=== PATIENT | male | born 1950 | race Two or more races ===

== ENCOUNTER → 2022-03-07 | Outpatient (CLI) | payer MEDICARE, MEDICAID ==
[~2022-03-07] MED LIST: NAPR250T74; TRAM50TA2
[2022-03-07 10:37] LABS: Basophils # (auto) 0.1 10 ^3/uL (0-0.2); Eosinophils # (auto) 0.2 10 ^3/uL (0-0.8); Eosinophils % (auto) 3.4 % (0.0-7.0); Hematocrit 41.3 % (41.0-53.0); Hemoglobin 13.4 g/dL (13.5-17.5); Lymphocytes # (auto) 2.6 10 ^3/uL (0.4-5.4); Lymphocytes % (auto) 40.2 % (10.0-50.0); Mean Corpuscular Hemoglobin 28.3 pg (28.0-32.0); Mean Corpuscular Hgb Conc. 32.4 g/dL (32.0-36.0); Mean Corpuscular Volume 87.4 fL (80.0-100.0); Monocytes # (auto) 0.5 10 ^3/uL (0-1.3); Monocytes % (auto) 7.3 % (0.0-12.0); Neutrophils # (auto) 3.1 10 ^3/uL (1.6-8.6); Neutrophils % (auto) 48.1 % (37.0-80.0); Red Blood Cells 4.72 10^6/uL (4.5-5.90); Red Cell Distribution Width 14.3 % (11.8-14.3); White Blood Cell 6.5 10^3/uL (4.4-10.8)
[2022-03-07 11:34] LABS: Albumin 3.8 g/dL (3.4-5.0); Calcium 8.8 mg/dL (8.5-10.1); Potassium 4.4 mmol/L (3.5-5.1)
[2022-03-07 11:39] LABS: BUN/Creatinine Ratio 13.7; Bilirubin, Total 0.3 mg/dL (0.2-1.0); Total Protein 7.5 g/dL (6.4-8.2)
== END | disposition home or self-care (01) ==
LOC: LAB 10:18
PROVIDERS: ATTEND Internal Medicine
DX: E78.5 Hyperlipidemia, unspecified (principal); I10 Essential (primary) hypertension; R73.03 Prediabetes; N40.0 Benign prostatic hyperplasia without lower urinary tract symptoms
CPT/HCPCS: 36415; 80053; 80061; 83036; 84153; 84443; 85025

== ENCOUNTER 2024-09-16 14:49 | Emergency (ER) | payer MEDICARE, MEDICAID ==
[~2024-09-16] VITALS: Ht 160 cm; Wt 75.6 kg
--- NOTE | 2024-09-16 15:20 | ED.PDOC ---
History of Present Illness HPI Comments 74-year-old male with a history of BPH and sciatica nerve injury with numbness and associated weakness to with the left leg presents with 3 days of a 7/10 left calf pain and bruising and tenderness to his left medial malleolus. Patient thinks he may have rolled his ankle when walking over a curb. He denies any fever chills nausea vomiting diarrhea. Patient is a smoker. Chief Complaint: Lower Extremity Time Seen by MD: 15:11 Primary Care Provider: DR GARCIA Allergies: Coded Allergies: NO KNOWN ALLERGIES (Unverified , 01/24/11) Home Meds Reported Medications Tramadol Hcl (Tramadol Hcl) 50 Mg Tab 01/24/11 Naproxen (Naprosyn) 250 Mg Tab 01/24/11 Past Medical History PAST MEDICAL HISTORY: Arthritis, High Lipids, HTN Surgical History: Denies all surgeries Family History Family History: Unobtainable Social History Smoker: Cigarettes Alcohol: Occasionally Drugs: Denies Drug Use Lives In: Home All Other Systems: Reviewed and Negative Physical Exam General Appearance: Normal HEENT: Pharyngeal Erythema Neck: Non-Tender, Normal Respiratory: No Respiratory Distress Cardiovascular: No Edema Breast Exam: Deferred Gastrointestinal: No Organomegaly, Non Tender, Soft Genitalia: Deferred Pelvic: Deferred Rectal: Deferred Extremities: Other (left leg appears thinner than right, left calf tender to plapitations) Neurologic: Other (decreased sensation to left leg) Cerebellar Function: NOT DONE Reflexes: NOT DONE Skin: Dry, Normal Color Lymphatic: NOT DONE Was a procedure done? Was a procedure done?: No Differential Dx Considerations may include: DVT, muscle strain, cellulitis, Sánchez cyst X-Ray, Labs, Meds, VS Vital Signs Date Time Temp Pulse Resp B/P (MAP) Pulse Ox O2 Delivery O2 Flow Rate FiO2 09/16/24 17:12 97.9 09/16/24 16:41 90 18 98 Room Air 09/16/24 16:41 99.2 90 18 140/80 (100) 98 99.2 09/16/24 16:12 97.8 09/16/24 15:58 97.8 98 18 146/83 (104) 97 Lab Test 09/16/24 16:08 Range/Units White Blood Count 8.8 4.4-10.8 10^3/uL Red Blood Count 4.56 4.5-5.90 10^6/uL Hemoglobin 14.2 13.5-17.5 g/dL Hematocrit 41.7 41.0-53.0 % Mean Corpuscular Volume 91.4 80.0-100.0 fL Mean Corpuscular Hemoglobin 31.1 28.0-32.0 pg Mean Corpuscular Hemoglobin Concent 34.0 32.0-36.0 g/dL Red Cell Distribution Width 13.7 11.8-14.3 % Platelet Count 311 140-450 10^3/uL Mean Platelet Volume 8.5 6.9-10.8 fL Neutrophils (%) (Auto) 71.9 37.0-80.0 % Lymphocytes (%) (Auto) 21.6 10.0-50.0 % Monocytes (%) (Auto) 5.1 0.0-12.0 % Eosinophils (%) (Auto) 0.8 0.0-7.0 % Basophils (%) (Auto) 0.6 0.0-2.0 % Neutrophils # (Auto) 6.3 1.6-8.6 10 ^3/uL Lymphocytes # (Auto) 1.9 0.4-5.4 10 ^3/uL Monocytes # (Auto) 0.4 0-1.3 10 ^3/uL Eosinophils # (Auto) 0.1 0-0.8 10 ^3/uL Basophils # (Auto) 0.1 0-0.2 10 ^3/uL Nucleated Red Blood Cells 0.1 % D-Dimer, Quantitative 1.98 H 0.0-0.49 mg/L FEU Sodium Level 140 136-145 mmol/L Potassium Level 3.8 3.5-5.1 mmol/L Chloride Level 105 98-107 mmol/L Carbon Dioxide Level 26 20-31 mmol/L Anion Gap 9 5-15 Blood Urea Nitrogen 17 9-23 mg/dL Creatinine 1.04 0.700-1.30 mg/dL Glomerular Filtration Rate Calc 76 >90 mL/min BUN/Creatinine Ratio 16.3 10.0-20.0 Serum Glucose 102 74-106 mg/dL Calcium Level 9.5 8.7-10.4 mg/dL Current Medications Medications (Trade) Dose Ordered Sig/Katie Route Start Time Stop Time Status Last Admin Acetaminophen (Tylenol Tablet) 650 mg ONCE ONCE PO 09/16/24 15:15 09/16/24 15:16 DC 09/16/24 16:12 Time of 1ST Reevaluation: 15:19 Reevaluation 1ST: Unchanged Patient Education/Counseling: Diagnosis, Treatment Family Education/Counseling: No Family Present Departure 1 Departure Time of Disposition: 17:34 (Patient's workup is benign except for an elevated D-dimer. Counseled patient the need for follow up for repeat ultrasound. Patient will follow up with Orthopedics later this week. Discharge patient home with outpatient follow up) Impression: Primary Impression: Pain of left calf Additional Impression: Left ankle sprain Qualified Codes: S93.402A - Sprain of unspecified ligament of left ankle, initial encounter Disposition: HOME / SELF CARE / HOMELESS Condition: Stable Referrals: CRUT LITTLE MD Additional Instructions: Your workup today was benign other than an elevated D-dimer. You should have a repeat ultrasound performed within one week to ensure there is no blood clot. You likely sprained your ankle. Fortunately it is not broken. For pain you can take the followinam: Ibuprofen 400mg with food Noon: Acetaminophen 1000mg 4pm: Ibuprofen 400mg with food 8pm: Acetaminophen 1000mg You can rex wrap your ankle for comfort. You can use crutches as needed. You were referred to orthopedic surgery. Please call for an appointment next week to ensure you are healing well. If your symptoms worsen or you have any other concerns then please return to the ER. Discharged With: Self Critical Care Note Critical Care Time?: No Stability Stability form required: NICKY Abdi MD Sep 16, 2024 15:20
--- NOTE | 2024-09-16 15:51 | DVH ---
Left lower extremity venous duplex Clinical History: calf pain and swelling Comparison: None Technique: Duplex Doppler evaluation of the deep venous system of the left lower extremity from the common femor al vein to the popliteal vein including color Doppler and spectral/pulsed waveform analysis was perfo rmed. Findings: The common femoral vein demonstrates appropriate compressibility and waveform variability. There is compressibility/patency of the great saphenous vein at the proximal thigh. The femoral vein demonstrates appropriate compressibility and waveform variability. The deep femoral vein demonstrates appropriate compressibility and waveform variability. The popliteal vein demonstrates appropriate compressibility and waveform variability. There is normal compressibility at the tibioperoneal trunk. Impression: No left femoropopliteal venous thrombosis.
--- NOTE | 2024-09-16 16:07 | DVH ---
CLINICAL INDICATION: fall with bruising and tenderness TECHNIQUE: XY L ANKLE 3 VIEW Comparison: None FINDINGS/IMPRESSION: : There is no evidence of acute fracture or dislocation. [id number] medial soft-tissue swelling. Degenerative spurring of the calcaneus. Moderate joint effusion.
[2024-09-16] MEDS: ACETAMINOPHEN 325 MG TAB PO ONE (16:12)
[2024-09-16 16:28] LABS: Basophils # (auto) 0.1 10 ^3/uL (0-0.2); Basophils % (auto) 0.6 % (0.0-2.0); Eosinophils # (auto) 0.1 10 ^3/uL (0-0.8); Eosinophils % (auto) 0.8 % (0.0-7.0); Hematocrit 41.7 % (41.0-53.0); Hemoglobin 14.2 g/dL (13.5-17.5); Lymphocytes # (auto) 1.9 10 ^3/uL (0.4-5.4); Lymphocytes % (auto) 21.6 % (10.0-50.0); Mean Corpuscular Hemoglobin 31.1 pg (28.0-32.0); Mean Corpuscular Volume 91.4 fL (80.0-100.0); Monocytes # (auto) 0.4 10 ^3/uL (0-1.3); Monocytes % (auto) 5.1 % (0.0-12.0); Neutrophils # (auto) 6.3 10 ^3/uL (1.6-8.6); Neutrophils % (auto) 71.9 % (37.0-80.0); Nucleated Red Blood Cells % 0.1 %; Platelet Count (auto) 311 10^3/uL (140-450); Red Blood Cells 4.56 10^6/uL (4.5-5.90); Red Cell Distribution Width 13.7 % (11.8-14.3); White Blood Cell 8.8 10^3/uL (4.4-10.8)
[2024-09-16 16:41] VITALS: BP 140/80; PULSE 90; RESP 18; O2SAT 98
[2024-09-16 16:43] LABS: Chloride 105 mmol/L (98-107); Potassium 3.8 mmol/L (3.5-5.1); Sodium 140 mmol/L (136-145)
[2024-09-16 16:44] LABS: Anion Gap 9 (5-15); Calcium 9.5 mg/dL (8.7-10.4); Carbon Dioxide 26 mmol/L (20-31)
[2024-09-16 16:49] LABS: BUN/Creatinine Ratio 16.3 (10.0-20.0); Blood Urea Nitrogen 17 mg/dL (9-23); Glucose 102 mg/dL (74-106)
[2024-09-16 17:12] VITALS: TEMP 97.9
== END 2024-09-16 18:06 | disposition home or self-care (01) ==
LOC: ER 14:49
DX: S93.402A Sprain of unspecified ligament of left ankle, initial encounter (principal); M19.90 Unspecified osteoarthritis, unspecified site; E78.5 Hyperlipidemia, unspecified; I10 Essential (primary) hypertension; F17.210 Nicotine dependence, cigarettes, uncomplicated; X58.XXXA Exposure to other specified factors, initial encounter; Y93.89 Activity, other specified; Y92.89 Other specified places as the place of occurrence of the external cause; Y99.8 Other external cause status
CPT/HCPCS: 36415; 73610; 80048; 85025; 85379; 93971

== ENCOUNTER 2024-09-21 11:29 | Inpatient (IN) | payer MEDICARE, MEDICAID ==
[~2024-09-21] VITALS: Ht 160 cm; Wt 77.2 kg
--- NOTE | 2024-09-21 11:54 | ECG ---
[facility] Test Date: 2024-09-21 Test Time: 11:51:15 Pat Name: NANO NIELSEN Department: ER Room: 0279 Gender: M Electronics Assembler: DEVIN : 1950 Requested By: YOGESH NOGUERA Order Number: [id number] Reading MD: Darian Etienne Measurements Intervals [place] Rate: 73 P: 45 OK: 158 QRS: -54 QRSD: 149 T: 52 QT: 402 QTc: 443 Interpretive Statements Sinus rhythm RBBB and LAFB Electronically Signed On 09-26-2024 17:12:53 PST by Darian Etienne Please click the below link to view image of tracing.
--- NOTE | 2024-09-21 11:59 | ED.PDOC ---
History of Present Illness HPI Comments HPI Ricther HPI: Poor Historian. 74 y.o male presents to the ED for a chief complaint of SOB, left calf and ankle pain x 1 month. Patient was seen at this ED on 09/16/24 for the pain, had an ultrasound done which ruled out a DVT. Patient reports he was at the clinic today and was sent over for a cardiac evaluation due to elevated D-dimer that includes CTA scan. Patient mentions left ankle and calf pain starts s/p injury and since has had constant pain. Vitals BP: 105/60 HR: 83 Temp: 98.9 F RR: 16 SPO2: 95% RA Past medical history: BPA, HTN, DM, GERD, depression, hyperlipidemia, arthritis Past surgical history: Shoulder Allergies: Denies REVIEW OF SYSTEMS: CONSTITUTIONAL: Denies acute: fever, diaphoresis, chills, generalized weakness. HEAD: Denies acute: headache, photophobia Eyes: Denies acute: Double vision, vision loss, eye pain, eye discharge. EARS: Denies acute: tinnitus, hearing loss, ear discharge, ear pain, THROAT: Denies acute: sore throat, swelling, difficulty swallowing , pain with swallowing, change in voice. NECK: Denies acute: neck pain, neck swelling, stiff neck. HEART: Denies acute : chest pain, palpitations, LUNGS: Denies acute: wheezing, cough, hemoptysis ABDOMEN: Denies acute: abdominal pain, Nausea, Vomiting, diarrhea, melena , hematemesis, hematochezia SKIN: Denies acute: rash, redness, lesions, itchiness. EXTREMITIES: Denies acute: calf pain, numbness, tingling, weakness, Denies acute: Low back pain. Neuro: Denies acute: focal neurological deficit, motor or sensory focal neurological deficit, tremors, seizure like activity, confusion, dizziness, change in mental status, loss of bowel or bladder function, cauda equina like symptoms. : Denies acute: dysuria, hematuria, flank pain, increase in urinary frequency. PSYCH: Denies acute: hallucination, suicidal ideation, homicidal ideation. PHYSICAL EXAM: General: no acute distress, awake and alert. Head: normocephalic, atraumatic. Neck: supple, trachea is midline, no swelling. Throat: Normal phonation. Eyes:, no erythema, no purulent discharge, no proptosis, no icterus. Heart: regular rate, regular rhythm, no significant murmur appreciated. Lungs: no apparent respiratory distress, Able to speak in full sentences. No wheezing, no rhonchi, no crackles. No stridors Clear to auscultation bilaterally. Abdomen: non tender to palpation, non distended, soft, no guarding, no rebound, + bowel sounds. Neuro: Awake, Alert, oriented to name, self, situation, follows commands GCS=15. Speech is normal. Skin: no petechia, no purpura, no cyanosis, non-pale, not jaundice. Lower extremities: - trace b/l - Pitting edema no deformity, no focal swelling, noted left calf tenderness to palpation, noted bruise/contusion in the left heel from a recent injury extending to his left calf area. Makes eye contact. moves all four extremities. Face: no apparent facial droop. Pedal pulses are palpable. ED COURSE: Chief Complaint: Shortness of Breath Time Seen by MD: 11:45 Primary Care Provider: DR GIRARD Reviewed Notes: Nurses Notes, Allergies Allergies: Coded Allergies: NO KNOWN ALLERGIES (Unverified , 01/24/11) Home Meds Reported Medications Tramadol Hcl (Tramadol Hcl) 50 Mg Tab 01/24/11 Naproxen (Naprosyn) 250 Mg Tab 01/24/11 Information Source: Patient Mode of Arrival: Wheelchair Past Medical History PAST MEDICAL HISTORY: Arthritis, High Lipids, HTN Surgical History: Denies all surgeries Family History Family History: Unobtainable Social History Smoker: Cigarettes Alcohol: Occasionally Drugs: Denies Drug Use Lives In: Home Was a procedure done? Was a procedure done?: No Differential Dx Considerations may include: Leg swelling Ddx include but not limited to DVT, ischemic limb, pitting edema, volume overload, CHF, cellulitis, hematoma, compartment syndrome, dependent edema, venous stasis. X-Ray, Labs, Meds, VS Vital Signs Date Time Temp Pulse Resp B/P (MAP) Pulse Ox O2 Delivery O2 Flow Rate FiO2 09/21/24 16:13 77 16 117/58 (77) 97 09/21/24 13:23 98.3 65 20 108/62 (77) 96 98.3 09/21/24 13:23 65 20 96 Room Air* 0 21 09/21/24 11:53 98.9 83 16 105/60 (75) 95 09/21/24 11:51 73 Lab Test 09/21/24 16:07 09/21/24 15:35 09/21/24 13:15 09/21/24 13:09 Range/Units Blood Gas Specimen Type Arterial Blood Gas Sample Site Right radial Blood Gas Patient Temperature 37.0 Arterial Blood Date Drawn [id number] Arterial Blood pH 7.380 7.350-7.450 Arterial Blood Partial Pressure CO2 40.4 35.0-48.0 mmHg Arterial Blood Partial Pressure O2 69.6 L 83.0-108.0 mmHg Arterial Blood HCO3 23.4 21.0-28.0 mmol/L Arterial Blood Oxygen Saturation 93.1 L 94.0-98.0 % Arterial Blood Base Excess -1.6 -2.0-3.0 mmol/L Arterial Blood Oxyhemoglobin 91.5 L 94.0-98.0 % Arterial Blood Carboxyhemoglobin 1.4 0.5-1.5 % Arterial Blood Methemoglobin 0.3 0.0-1.5 % Juan Test Yes Blood Gas Total Hemoglobin 15.00 13.5-17.5 g/dL Blood Gas Modality Room air FiO2 % 21.0 Troponin I High Sensitivity < 3 L < 3 L </=54 ng/L Urine Color Dark-yellow Yellow Urine Clarity Clear Clear Urine pH 5.5 5.0-9.0 Urine Specific [place] 1.045 H 1.001-1.035 Urine Protein Trace H Negative Urine Ketones Negative Negative Urine Blood Negative Negative /uL Urine Nitrite Negative Negative Urine Bilirubin Negative Negative Urine Urobilinogen Normal Negative mg/dL Urine Leukocyte Esterase Negative Negative /uL Urine RBC 1 0 - 3 /hpf Urine Microscopic WBC 5 H 0-3 /HPF Urine Squamous Epithelial Cells Few <5 /hpf Urine Bacteria None seen None Seen /hpf Urine Mucus Few None Seen Urine Glucose Normal Normal mg/dL Test 09/21/24 11:59 Range/Units White Blood Count 8.3 4.4-10.8 10^3/uL Red Blood Count 4.52 4.5-5.90 10^6/uL Hemoglobin 14.3 13.5-17.5 g/dL Hematocrit 41.6 41.0-53.0 % Mean Corpuscular Volume 92.2 80.0-100.0 fL Mean Corpuscular Hemoglobin 31.7 28.0-32.0 pg Mean Corpuscular Hemoglobin Concent 34.4 32.0-36.0 g/dL Red Cell Distribution Width 13.5 11.8-14.3 % Platelet Count 307 140-450 10^3/uL Mean Platelet Volume 8.4 6.9-10.8 fL Neutrophils (%) (Auto) 76.5 37.0-80.0 % Lymphocytes (%) (Auto) 16.9 10.0-50.0 % Monocytes (%) (Auto) 4.9 0.0-12.0 % Eosinophils (%) (Auto) 1.0 0.0-7.0 % Basophils (%) (Auto) 0.7 0.0-2.0 % Neutrophils # (Auto) 6.4 1.6-8.6 10 ^3/uL Lymphocytes # (Auto) 1.4 0.4-5.4 10 ^3/uL Monocytes # (Auto) 0.4 0-1.3 10 ^3/uL Eosinophils # (Auto) 0.1 0-0.8 10 ^3/uL Basophils # (Auto) 0.1 0-0.2 10 ^3/uL Nucleated Red Blood Cells 0.0 % Prothrombin Time 9.9 9.3-11.8 sec Prothrombin Time INR 0.93 0.9-1.15 Activated Partial Thromboplast Time 27.1 24.5-34.5 SEC D-Dimer, Quantitative 1.30 H 0.0-0.49 mg/L FEU Sodium Level 139 136-145 mmol/L Potassium Level 4.0 3.5-5.1 mmol/L Chloride Level 106 98-107 mmol/L Carbon Dioxide Level 26 20-31 mmol/L Anion Gap 7 5-15 Blood Urea Nitrogen 21 9-23 mg/dL Creatinine 1.23 0.700-1.30 mg/dL Glomerular Filtration Rate Calc 62 >90 mL/min BUN/Creatinine Ratio 17.1 10.0-20.0 Serum Glucose 101 74-106 mg/dL Lactic Acid Level 1.3 0.4-2.0 mmol/L Calcium Level 9.5 8.7-10.4 mg/dL Magnesium Level 2.0 1.6-2.6 mg/dL Total Bilirubin 0.4 0.2-1.0 mg/dL Aspartate Amino Transferase (AST) 15 13-40 U/L Alanine Aminotransferase (ALT) 28 7-40 U/L Alkaline Phosphatase 70 46-116 U/L Troponin I High Sensitivity < 3 L </=54 ng/L B-Type Natriuretic Peptide 47.74 0-100 pg/mL Total Protein 7.1 5.7-8.2 g/dL Albumin 4.6 3.2-4.8 g/dL [place] [id number] Ph: [phone] DIAGNOSTIC IMAGING Diagnostic Imaging Report : [id number] Signed PATIENT: NANO RICHTER ACCT: [id number] UNIT: [id number] : 1950 LOC: ER ROOM / BED: / AGE / SEX: 74 / M ADM STATUS: REG ER SERVICE 1512 ORDERING PHYSICIAN: NICKY WATTS MD PROCEDURE(s): LLDVT - LT Lower DVT REASON: calf pain and swelling ORDER NUMBER(s): [id number], ACCESSION NUMBER(s): [id number] Left lower extremity venous duplex Clinical History: calf pain and swelling Comparison: None Technique: Duplex Doppler evaluation of the deep venous system of the left lower extremity from the common femoral vein to the popliteal vein including color Doppler and spectral/pulsed waveform analysis was performed. Findings: The common femoral vein demonstrates appropriate compressibility and waveform variability. There is compressibility/patency of the great saphenous vein at the proximal thigh. The femoral vein demonstrates appropriate compressibility and waveform variability. The deep femoral vein demonstrates appropriate compressibility and waveform variability. The popliteal vein demonstrates appropriate compressibility and waveform vari ability. There is normal compressibility at the tibioperoneal trunk. Impression: No left femoropopliteal venous thrombosis. ATED BY: DARRION CHADWICK MD DICTATED DATE/TIME: 09/16/24 1548 SIGNED BY: DARRION CHADWICK MD SIGNED DATE/TIME: 09/16/24 154 CC: Time of 1ST Reevaluation: 11:54 Reevaluation 1ST: Unchanged Patient Education/Counseling: Diagnosis, Treatment Family Education/Counseling: No Family Present Departure 1 Departure Time of Disposition: 15:23 Impression: Primary Impression: Dyspnea Additional Impressions: Left leg pain Hypoxemia Disposition: 09 ADMITTED INPATIENT Admit to: Tele Condition: Guarded Discharged With: Self Critical Care Note Critical Care Time?: No I personally scribed for YOGESH NOGUERA DO ([email or web address]) on 09/21/24 at 11:59. Electronically submitted by Julienne Caceres ([facility]). I personally scribed for YOGESH NOGUERA DO ([email or web address]) on 09/21/24 at 14:03. Electronically submitted by Julienne Caceres ([facility]). YOGESH NOGUERA DO Sep 21, 2024 11:59
[2024-09-21 12:23] LABS: Basophils # (auto) 0.1 10 ^3/uL (0-0.2); Basophils % (auto) 0.7 % (0.0-2.0); Eosinophils # (auto) 0.1 10 ^3/uL (0-0.8); Hematocrit 41.6 % (41.0-53.0); Hemoglobin 14.3 g/dL (13.5-17.5); Lymphocytes # (auto) 1.4 10 ^3/uL (0.4-5.4); Lymphocytes % (auto) 16.9 % (10.0-50.0); Mean Corpuscular Hemoglobin 31.7 pg (28.0-32.0); Mean Corpuscular Hgb Conc. 34.4 g/dL (32.0-36.0); Mean Corpuscular Volume 92.2 fL (80.0-100.0); Monocytes # (auto) 0.4 10 ^3/uL (0-1.3); Monocytes % (auto) 4.9 % (0.0-12.0); Neutrophils # (auto) 6.4 10 ^3/uL (1.6-8.6); Neutrophils % (auto) 76.5 % (37.0-80.0); Platelet Count (auto) 307 10^3/uL (140-450); Red Blood Cells 4.52 10^6/uL (4.5-5.90); Red Cell Distribution Width 13.5 % (11.8-14.3); White Blood Cell 8.3 10^3/uL (4.4-10.8)
[2024-09-21 12:45] LABS: Alanine Aminotransferase 28 U/L (7-40); Albumin 4.6 g/dL (3.2-4.8); Alkaline Phosphatase 70 U/L (46-116); Anion Gap 7 (5-15); Aspartate Aminotransferase 15 U/L (13-40); BUN/Creatinine Ratio 17.1 (10.0-20.0); Blood Urea Nitrogen 21 mg/dL (9-23); Calcium 9.5 mg/dL (8.7-10.4); Carbon Dioxide 26 mmol/L (20-31); Chloride 106 mmol/L (98-107); Glucose 101 mg/dL (74-106); Sodium 139 mmol/L (136-145); Total Protein 7.1 g/dL (5.7-8.2)
[2024-09-21 12:46] LABS: Bilirubin, Total 0.4 mg/dL (0.2-1.0)
[2024-09-21 12:48] LABS: INR 0.93 (0.9-1.15); Partial Thromboplastin Time 27.1 SEC (24.5-34.5); Prothrombin Time 9.9 sec (9.3-11.8)
[2024-09-21 13:23] VITALS: PULSE 65; RESP 20; O2SAT 96
[2024-09-21] MEDS: IOHEXOL 350 MG/ML 100ML IJ ONE (13:34)
--- NOTE | 2024-09-21 14:01 | DVH ---
EXAM: XY CHEST PORTABLE HISTORY: DIZZY, ELEVATED D DIMER COMPARISON: None TECHNIQUE: Portable AP view of the chest was performed. FINDINGS: No pneumothorax, consolidative infiltrates, or pulmonary edema. The heart is borderline enl arged. There are postoperative changes of the right shoulder with multiple bone anchors in the pepito l head and right distal clavicle resection. The right humeral head is high-riding consistent with sig nificant rotator cuff tendinopathy. There is thoracic degenerative disc disease. IMPRESSION: 1. No acute intrathoracic process. 2. Postoperative changes of the right shoulder and indirect evidence of significant right rotator cuf f tendinopathy.
[2024-09-21 14:05] LABS: Urine Bacteria None Seen /hpf (None Seen)
--- NOTE | 2024-09-21 14:18 | DVH ---
CTA CHEST INDICATION: ELEVATED D DIMER TECHNIQUE: Multidetector CTA of the chest was performed of the chest with 100 cc of intravenous contr ast. PULMONARY ANGIOGRAPHY PROTOCOL was utilized using a bolus-tracking technique centered on the cira n pulmonary artery. Axial, coronal and sagittal multiplanar and MIP reformats were performed. Radiation Dose Information: CT Dose: CTDI volume is 13 mGy. Dose-length product is 440 mGy*cm The dose indicators for CT are the volume Computed Tomography (CT) Dose Index (CTDIvol) and the Dose Length Product (DLP), and are measured in units of mGy and mGy-cm, respectively. These indicators are not patient dose, but values generated from the CT scanner acquisition factors. The report includes radiation exposure data for exposures received during this examination. Comparison: None Findings: Pulmonary artery: There is no evidence of a pulmonary arterial filling defect to suggest pulmonary e mbolism. The main pulmonary artery demonstrates normal caliber. Lungs/Pleura: Mild scarring versus atelectasis in the posterior lung bases. No focal consolidation, p ulmonary mass, or suspicious pulmonary nodule. There is no pleural effusion. Heart/Vascular Structures: Normal heart size. The thoracic aorta demonstrates normal caliber. There is no evidence of pericardial effusion. Lymph Nodes: There is no evidence of thoracic lymphadenopathy. Musculoskeletal: No acute osseous abnormality. Multilevel thoracic spondylosis. Upper abdomen: Moderate size hiatal hernia. Remaining visualized upper abdominal structures appear w ithin normal limits. IMPRESSION: 1. There is no acute intrathoracic abnormality. There is no evidence of a pulmonary arterial filling defect to suggest pulmonary embolism.2. Moderate size hiatal hernia. HS:Y
[2024-09-21 14:33] LABS: Urine Blood Negative /uL (Negative); Urine Clarity Clear (Clear); Urine Color Dark-Yellow (Yellow); Urine Mucus FEW (None Seen); Urine Protein, UAD TRACE (Negative); Urine Squamous Epithelial Cell FEW /hpf (<5); Urine Urobilinogen Normal (Negative); Urine WBC 5 /HPF (0-3); Urine pH 5.5 (5.0-9.0)
[2024-09-21 15:04] LABS: Urine Specific Gravity 1.045 (1.001-1.035)
[2024-09-21 16:12] LABS: Base Excess -1.6 mmol/L (-2.0-3.0)
[2024-09-21] MEDS ORDERED: ALBUTEROL SULF 2.5 MG/0.5ML(0.5%) NEB SOLN NEB PRN (18:45)
[2024-09-21] MEDS ORDERED: ONDANSETRON HCL 4 MG/2 ML VIAL IV PRN (18:45)
[2024-09-21 19:12] VITALS: BP 117/58; PULSE 77; RESP 16; TEMP 98.3; O2SAT 97
--- NOTE | 2024-09-21 20:06 | DVHHP2 ---
History of Present Illness Reason for Visit: Shortness for breath History of Present Illness 74-year-old male presents for evaluation of shortness for breath. Patient reports a one month history of worsening shortness for breath. Patient reports symptoms become worse with exertion or when lying flat. She reports mild left-sided chest pressure. Denies cough or fever. No nausea or vomiting. Patient reports having an oncoming procedure by Urology on 09/24/24. Past Medical History BPH, depression, hypertension dyslipidemia Past Surgical History Shoulder surgery Family History Noncontributory Smoke: No ALCOHOL: none Drugs: None Lives: with Family Review of Systems Review of Systems Review of systems are currently negative otherwise addressed in HPI. Allergies: Coded Allergies: NO KNOWN ALLERGIES (Unverified , 01/24/11) Medications Current Medications Medications Dose Ordered Sig/Katie Route Start Time Stop Time Status Last Admin Dose Admin Metoprolol Tartrate 25 mg BID PO 09/21/24 22:00 Paroxetine HCl 40 mg DAILY PO 09/22/24 10:00 Finasteride 5 mg DAILY PO 09/22/24 10:00 Albuterol 2.5 mg Q6HPRN PRN NEB 09/21/24 18:45 Ondansetron HCl 4 mg Q4HP PRN IV 09/21/24 18:45 Acetaminophen 650 mg Q6HP PRN PO 09/21/24 18:45 Exam Vital Signs Vital Signs Date Time Temp Pulse Resp B/P (MAP) Pulse Ox O2 Delivery O2 Flow Rate FiO2 09/21/24 19:12 98.3 77 16 117/58 97 0.0 21 98.3 09/21/24 13:23 Room Air* Exam Gen: 74-year-old male in mild distress Skin: Warm, dry, normal color and texture, no rash. HEENT: Normocephalic atraumatic, mucous membranes moist and pink. Neck: Cervical and supraclavicular nodes normal without enlargement, trachea is midline, thyroid gland is normal without masses. Pulmonary: Clear to auscultation and percussion bilaterally. Cardiac: Regular rate and rhythm. No murmur Abdomen: Soft, nontender, mild distention, bowel sounds present all 4 quadrants, no guarding, no rigidity, no organomegaly. Extremities: No cyanosis, clubbing, no edema Neuro: Cranial nerves II through XII grossly intact, normal affect and speech, no focal motor deficits. Labs/Xrays ORDERING PHYSICIAN: YOGESH NOGUERA DO PROCEDURE(s): CXRP - CHEST PORTABLE REASON: DIZZY, ELEVATED D DIMER ORDER NUMBER(s): [id number], ACCESSION NUMBER(s): [id number] EXAM: XY CHEST PORTABLE HISTORY: DIZZY, ELEVATED D DIMER COMPARISON: None TECHNIQUE: Portable AP view of the chest was performed. FINDINGS: No pneumothorax, consolidative infiltrates, or pulmonary edema. The heart is borderline enlarged. There are postoperative changes of the right shoulder with multiple bone anchors in the humeral head and right distal clavicle resection. The right humeral head is high-riding consistent with significant rotator cuff tendinopathy. There is thoracic degenerative disc disease. IMPRESSION: 1. No acute intrathoracic process. 2. Postoperative changes of the right shoulder and indirect evidence of significant right rotator cuff tendinopathy. RING PHYSICIAN: YOGESH NOGUERA DO PROCEDURE(s): CTACH - CT ANGIO CHEST CONTRAST REASON: ELEVATED D DIMER ORDER NUMBER(s): [id number], ACCESSION NUMBER(s): [id number] CTA CHEST INDICATION: ELEVATED D DIMER TECHNIQUE: Multidetector CTA of the chest was performed of the chest with 100 cc of intravenous contrast. PULMONARY ANGIOGRAPHY PROTOCOL was utilized using a bolus-tracking technique centered on the main pulmonary artery. Axial, coronal and sagittal multiplanar and MIP reformats were performed. Radiation Dose Information: CT Dose: CTDI volume is 13 mGy. Dose-length product is 440 mGy*cm The dose indicators for CT are the volume Computed Tomography (CT) Dose Index (CTDIvol) and the Dose Length Product (DLP), and are measured in units of mGy and mGy-cm, respectively. These indicators are not patient dose, but values generated from the CT scanner acquisition factors. The report includes radiation exposure data for exposures received during this examination. Comparison: None Findings: Pulmonary artery: There is no evidence of a pulmonary arterial filling defect t o suggest pulmonary embolism. The main pulmonary artery demonstrates normal caliber. Lungs/Pleura: Mild scarring versus atelectasis in the posterior lung bases. No focal consolidation, pulmonary mass, or suspicious pulmonary nodule. There is no pleural effusion. Heart/Vascular Structures: Normal heart size. The thoracic aorta demonstrates normal caliber. There is no evidence of pericardial effusion. Lymph Nodes: There is no evidence of thoracic lymphadenopathy. Musculoskeletal: No acute osseous abnormality. Multilevel thoracic spondylosis. Upper abdomen: Moderate size hiatal hernia. Remaining visualized upper abdominal structures appear within normal limits. IMPRESSION: 1. There is no acute intrathoracic abnormality. There is no evidence of a pul monary arterial filling defect to suggest pulmonary embolism.2. Moderate size hiatal hernia. HS:Y Labs Test 09/21/24 16:07 09/21/24 15:35 09/21/24 13:15 09/21/24 11:59 Range/Units Blood Gas Specimen Type Arterial Blood Gas Sample Site Right radial Blood Gas Patient Temperature 37.0 Arterial Blood Date Drawn [id number] Arterial Blood pH 7.380 7.350-7.450 Arterial Blood Partial Pressure CO2 40.4 35.0-48.0 mmHg Arterial Blood Partial Pressure O2 69.6 L 83.0-108.0 mmHg Arterial Blood HCO3 23.4 21.0-28.0 mmol/L Arterial Blood Oxygen Saturation 93.1 L 94.0-98.0 % Arterial Blood Base Excess -1.6 -2.0-3.0 mmol/L Arterial Blood Oxyhemoglobin 91.5 L 94.0-98.0 % Arterial Blood Carboxyhemoglobin 1.4 0.5-1.5 % Arterial Blood Methemoglobin 0.3 0.0-1.5 % Juan Test Yes Blood Gas Total Hemoglobin 15.00 13.5-17.5 g/dL Blood Gas Modality Room air FiO2 % 21.0 Troponin I High Sensitivity < 3 L </=54 ng/L Urine Color Dark-yellow Yellow Urine Clarity Clear Clear Urine pH 5.5 5.0-9.0 Urine Specific [place] 1.045 H 1.001-1.035 Urine Protein Trace H Negative Urine Ketones Negative Negative Urine Blood Negative Negative /uL Urine Nitrite Negative Negative Urine Bilirubin Negative Negative Urine Urobilinogen Normal Negative mg/dL Urine Leukocyte Esterase Negative Negative /uL Urine RBC 1 0 - 3 /hpf Urine Microscopic WBC 5 H 0-3 /HPF Urine Squamous Epithelial Cells Few <5 /hpf Urine Bacteria None seen None Seen /hpf Urine Mucus Few None Seen Urine Glucose Normal Normal mg/dL White Blood Count 8.3 4.4-10.8 10^3/uL Red Blood Count 4.52 4.5-5.90 10^6/uL Hemoglobin 14.3 13.5-17.5 g/dL Hematocrit 41.6 41.0-53.0 % Mean Corpuscular Volume 92.2 80.0-100.0 fL Mean Corpuscular Hemoglobin 31.7 28.0-32.0 pg Mean Corpuscular Hemoglobin Concent 34.4 32.0-36.0 g/dL Red Cell Distribution Width 13.5 11.8-14.3 % Platelet Count 307 140-450 10^3/uL Mean Platelet Volume 8.4 6.9-10.8 fL Neutrophils (%) (Auto) 76.5 37.0-80.0 % Lymphocytes (%) (Auto) 16.9 10.0-50.0 % Monocytes (%) (Auto) 4.9 0.0-12.0 % Eosinophils (%) (Auto) 1.0 0.0-7.0 % Basophils (%) (Auto) 0.7 0.0-2.0 % Neutrophils # (Auto) 6.4 1.6-8.6 10 ^3/uL Lymphocytes # (Auto) 1.4 0.4-5.4 10 ^3/uL Monocytes # (Auto) 0.4 0-1.3 10 ^3/uL Eosinophils # (Auto) 0.1 0-0.8 10 ^3/uL Basophils # (Auto) 0.1 0-0.2 10 ^3/uL Nucleated Red Blood Cells 0.0 % Prothrombin Time 9.9 9.3-11.8 sec Prothrombin Time INR 0.93 0.9-1.15 Activated Partial Thromboplast Time 27.1 24.5-34.5 SEC D-Dimer, Quantitative 1.30 H 0.0-0.49 mg/L FEU Sodium Level 139 136-145 mmol/L Potassium Level 4.0 3.5-5.1 mmol/L Chloride Level 106 98-107 mmol/L Carbon Dioxide Level 26 20-31 mmol/L Anion Gap 7 5-15 Blood Urea Nitrogen 21 9-23 mg/dL Creatinine 1.23 0.700-1.30 mg/dL Glomerular Filtration Rate Calc 62 >90 mL/min BUN/Creatinine Ratio 17.1 10.0-20.0 Serum Glucose 101 74-106 mg/dL Lactic Acid Level 1.3 0.4-2.0 mmol/L Calcium Level 9.5 8.7-10.4 mg/dL Magnesium Level 2.0 1.6-2.6 mg/dL Total Bilirubin 0.4 0.2-1.0 mg/dL Aspartate Amino Transferase (AST) 15 13-40 U/L Alanine Aminotransferase (ALT) 28 7-40 U/L Alkaline Phosphatase 70 46-116 U/L B-Type Natriuretic Peptide 47.74 0-100 pg/mL Total Protein 7.1 5.7-8.2 g/dL Albumin 4.6 3.2-4.8 g/dL Assessment/Plan Assessment/Plan Assessment Respiratory distress Diabetes mellitus Obesity Hypertension BPH Plan Admit the patient to med surge to the hospitalist Echocardiogram pending Pulmonary consultation for PFTs Consult with Urology if patient is not discharged by 09/24/24 for upcoming ?procedure/surgery Resume home medications Continue treatment per orders. Plan discussed with: Patient My Orders Orders - ALBERTO HUERTA Procedure Category Date Status Time Basic Metabolic Panel LAB 09/22/24 Verified 04:00 Metoprolol Tartrate PHA 09/21/24 In Process Tablet (Lopressor Ta 22:00 Paroxetine Tablet PHA 09/22/24 In Process (Paxil Tablet) 10:00 Finasteride Tablet PHA 09/22/24 In Process (Proscar Tablet) 10:00 Albuterol Medneb PHA 09/21/24 In Process (Ventolin Medneb) 18:45 Admit ADMIT 09/21/24 Transmitted 18:32 Ondansetron Hcl PHA 09/21/24 In Process (Zofran) 18:45 Cardiac DIET 09/22/24 Transmitted Diet-2gna,Lofat,Lochol Breakfast Condition: Stable RADHA 09/21/24 In Process 18:32 Acetaminophen Tablet PHA 09/21/24 In Process (Tylenol Tablet) 18:45 Bedrest With Bathroom RADHA 09/21/24 In Process Privileg 18:32 Date of Service: Sep 21, 2024 Billing Provider: ALBERTO HUERTA Common Visit Codes: [id number] INP/OBS CARE (MOD) ALBERTO HUERTA Sep 21, 2024 20:06
[2024-09-21] MEDS: METOPROLOL TARTRATE 25 MG TAB PO SCH (22:35)
[2024-09-22] VITALS (12 sets, daily range): BP systolic 109–148; BP diastolic 3–76; PULSE 63–87; RESP 17–18; TEMP 97.3–98.2; O2SAT 18–100
[2024-09-22] MEDS ORDERED: MET25T PO (02:34)
[2024-09-22] MEDS ORDERED: FIN5T PO (02:34)
[2024-09-22] MEDS ORDERED: TRAZ-227 PO (02:34)
[2024-09-22] MEDS ORDERED: OMEP1CAP70 PO (02:34)
[2024-09-22] MEDS ORDERED: TAMS0.4C39 PO (02:34)
[2024-09-22] MEDS ORDERED: TRAM-626 PO (02:36)
[2024-09-22 07:48] LABS: Anion Gap 9 (5-15); Carbon Dioxide 27 mmol/L (20-31); Potassium 3.8 mmol/L (3.5-5.1); Sodium 143 mmol/L (136-145)
[2024-09-22 07:49] LABS: Calcium 9.2 mg/dL (8.7-10.4)
[2024-09-22 07:54] LABS: Blood Urea Nitrogen 16 mg/dL (9-23); Glucose 91 mg/dL (74-106)
[2024-09-22 08:11] LABS: Chloride 107 mmol/L (98-107)
[2024-09-22] MEDS: FINASTERIDE 5 MG TAB PO SCH (09:47)
[2024-09-22] MEDS: PARoxetine 20 MG TAB PO SCH (09:48)
[2024-09-22] MEDS: FUROSEMIDE 40 MG TAB PO SCH (09:48)
[2024-09-22] MEDS ORDERED: IPRATROPIUM BROM 0.5 MG/2.5ML INH SOL NEB PRN ×3 (12:45→19:00)
[2024-09-22] MEDS: ACETAMINOPHEN 325 MG TAB PO PRN (15:53)
--- NOTE | 2024-09-22 17:17 | DVHPN2 ---
Subjective Seen and examined at bedside. Occasionally short of breath. Await ECHO. Give Lasix IV Changes from previous H/P or p: No Changes Objective Vitals Vital Signs Date Time Temp Pulse Resp B/P (MAP) Pulse Ox O2 Delivery O2 Flow Rate FiO2 09/22/24 13:30 98.2 63 18 113/3 (39) 97 98.2 09/22/24 08:00 Room Air* 0 21 Intake/Output Intake and Output 09/22/24 07:00 Intake Total 100 ml Balance 100 ml Intake Oral 100 ml Exam Gen: in bed NAD Cvs: N S1/S2, RRR Resp: Creps Abd: Soft, NT, BS+ Radiologist Physician: AAO x 4 Medications Current Medications Medications Dose Ordered Sig/Katie Route Start Time Stop Time Status Last Admin Dose Admin Metoprolol Tartrate 25 mg BID PO 09/21/24 22:00 09/22/24 09:48 25 MG Paroxetine HCl 40 mg DAILY PO 09/22/24 10:00 09/22/24 09:48 40 MG Finasteride 5 mg DAILY PO 09/22/24 10:00 09/22/24 09:47 5 MG Ondansetron HCl 4 mg Q4HP PRN IV 09/21/24 18:45 Acetaminophen 650 mg Q6HP PRN PO 09/21/24 18:45 09/22/24 15:53 650 MG Furosemide 40 mg DAILY PO 09/22/24 10:00 09/22/24 09:48 40 MG Albuterol 2.5 mg Q6HPRN PRN NEB 09/22/24 19:00 Ipratropium [place] 0.5 mg Q6HPRN PRN NEB 09/22/24 19:00 Laboratory Results Laboratory Tests 09/21/24 11:59 09/22/24 06:11 Chemistry Test 09/22/24 06:11 Calcium Level 9.2 mg/dL (8.7-10.4) Urinalysis Test 09/21/24 13:15 Urine Color Dark-yellow (Yellow) Urine Clarity Clear (Clear) Urine pH 5.5 (5.0-9.0) Urine Specific [place] 1.045 (1.001-1.035) Urine Protein Trace (Negative) H Urine Ketones Negative (Negative) Urine Blood Negative /uL (Negative) Urine Nitrite Negative (Negative) Urine Bilirubin Negative (Negative) Urine Urobilinogen Normal mg/dL (Negative) Urine Leukocyte Esterase Negative /uL (Negative) Urine RBC 1 /hpf (0 - 3) Urine Microscopic WBC 5 /HPF (0-3) H Urine Squamous Epithelial Cells Few /hpf (<5) Urine Bacteria None seen /hpf (None Seen) Urine Mucus Few (None Seen) Urine Glucose Normal mg/dL (Normal) Assessment/Plan Assessment/Plan # Possible Acute Diastolic CHF- Lasix, ECHO # DM2? Check A1c # Possible COPD Exacerbation # Goals of care discussion >17 mins FULL CODE Plan discussed with: Patient My Orders Orders - MERRY ALBRECHT MD Procedure Category Date Status Time Ipratropium Medneb PHA 09/22/24 In Process (Atrovent Medneb) 19:00 Furosemide Injection PHA 09/22/24 Verified (Lasix Injection) 17:15 Furosemide Injection PHA 09/23/24 Verified (Lasix Injection) 10:00 Basic Metabolic Panel LAB 09/23/24 Verified 04:00 Magnesium LAB 09/23/24 Verified 04:00 Date of Service: Sep 22, 2024 Billing Provider: MERRY ALBRECHT MD Common Visit Codes: [id number] INP/OBS CARE(HIGH) Secondary Visit Codes: [id number] CARE PLAN 30 MINUTES MERRY ALBRECHT MD Sep 22, 2024 17:17
[2024-09-22] MEDS: FUROSEMIDE 20 MG/2 ML VIAL IV ONE (17:46)
[2024-09-22] MEDS ORDERED: ALBUTEROL SULF 2.5 MG/0.5ML(0.5%) NEB SOLN NEB PRN (19:00)
[2024-09-23] VITALS (10 sets, daily range): BP systolic 110–132; BP diastolic 63–85; PULSE 59–74; RESP 17–20; TEMP 97.4–99.1; O2SAT 95–98
[2024-09-23 06:18] LABS: Chloride 101 mmol/L (98-107); Potassium 4.1 mmol/L (3.5-5.1); Sodium 140 mmol/L (136-145)
[2024-09-23 06:19] LABS: Anion Gap 9 (5-15); Calcium 9.8 mg/dL (8.7-10.4); Carbon Dioxide 30 mmol/L (20-31)
[2024-09-23 06:24] LABS: BUN/Creatinine Ratio 17.1 (10.0-20.0); Blood Urea Nitrogen 19 mg/dL (9-23); Glucose 97 mg/dL (74-106)
[2024-09-23 06:25] LABS: Magnesium 2.2 mg/dL (1.6-2.6)
[2024-09-23 06:41] LABS: Cholesterol 184 mg/dL (< 200); LDL Cholesterol 128 mg/dL (< 100); Triglycerides 206 mg/dL (< 150)
[2024-09-23 06:42] LABS: HDL Cholesterol 36 mg/dL (40-59)
[2024-09-23] MEDS: FUROSEMIDE 20 MG/2 ML VIAL IV SCH (08:47)
--- NOTE | 2024-09-23 11:47 | DVHSR ---
APPROVED REPORT EXAM: Two-dimensional and M-mode echocardiogram with Doppler and color Doppler. Blood Pressure: 109/58 mmHg INDICATION Chest Pain EF RISK FACTORS Height: 63, Weight: 168 DIMENSIONS LVDd4.5 (3.8-5.7cm)LA (2D) (1.9-4.0cm)Aortic Root3.8 (2.0-3.7cm) LVDs3.0 (2.5-4.0cm)LA (MM) (1.9-4.0cm)Aortic Cusp Exc1.7 (1.5-2.0cm) EF (%) 60.0 (55-70%)Rt. Atrium (1.9-4.0cm)Asc. Aorta cm IVSd1.0 (0.7-1.1cm)RV (D) (1.8-2.4cm) PWd1.1 (0.7-1.1cm) Mitral Valve MitralMitral Stenosis E/A ratio0.02D MVAcm2 DECEL TimemsPRESS 1/2 [id number] IVRTmsDop MVA1.85cm2 Aortic Valve Aortic ValveAortic Stenosis V11.00m/Bimal Mean GR.3mmHg V21.20m/Bimal Peak GR.6mmHg LVOT Diameter2.0 (1.8-2.4cm)Doppler AVA2.62cm2 Pulmonic Valve V20.85m/s Tricuspid Valve TR Velocity1.97m/s [id number] Conclusion Sinus rhythm. Aortic root enlargement. Valves are normal. EF of 60% with normal RV function. Dopplers unremarkable. No pericardial effusion masses or vegetations discernible.
--- NOTE | 2024-09-23 14:53 | DVHINCON2 ---
Date of service: Sep 23, 2024 Referring Physician Hospitalist Reason for Consultation BPH History of Present Illness Patient who is already on the schedule for an elective UroLift procedure with me tomorrow at [facility] OR is currently an inpatient at [facility]. Family would like him to undergo procedure tomorrow as scheduled while he is an inpatient. 74-year-old male presents for evaluation of shortness for breath. Patient reports a one month history of worsening shortness for breath. Patient reports symptoms become worse with exertion or when lying flat. She reports mild left- sided chest pressure. Denies cough or fever. No nausea or vomiting. Patient reports having an oncoming procedure by Urology on 09/24/24. Past Medical History BPH, depression, hypertension dyslipidemia Past Surgical History Cystoscopy Past Surgical History Shoulder surgery Family History: Diabetes mellitus G8 MOTHER, Allergies: Coded Allergies: NO KNOWN ALLERGIES (Unverified , 01/24/11) Home Meds Reported Medications Tramadol HCl (Tramadol HCl) 50 Mg Tab, 1 TAB PO PRN for PAIN SCALE 7 THRU 10 09/22/24 Metoprolol Tartrate (Lopressor) 25 Mg Tb, 1 TAB PO BID 09/22/24 Tamsulosin Hcl (Tamsulosin Hcl) 0.4 Mg Cap, 1 CAP PO DAILY 09/22/24 Finasteride (Finasteride) 5 Mg Tab, 1 TAB PO DAILY 09/22/24 Omeprazole (Omeprazole Dr) 20 Mg Cap, 40 MG PO DAILY 09/22/24 Trazodone Hcl (Trazodone Hcl) 50 Mg Tab, 1 TAB PO HS 09/22/24 Current Medications Current Medications Medications (Trade) Dose Ordered Sig/Katie Route PRN Reason Start Time Stop Time Status Last Admin Albuterol (Ventolin Medneb) 2.5 mg Q6HPRN PRN NEB SHORTNESS OF BREATH 09/22/24 19:00 Ipratropium [place] (Atrovent Medneb) 0.5 mg Q6HPRN PRN NEB SHORTNESS OF BREATH 09/22/24 19:00 Furosemide (Lasix Injection) 20 mg DAILY IV 09/23/24 10:00 09/23/24 08:47 Review of Systems Review of systems are currently negative otherwise addressed in HPI. Vital Signs Vital Signs Date Time Temp Pulse Resp B/P (MAP) Pulse Ox O2 Delivery O2 Flow Rate FiO2 09/23/24 13:00 97.4 64 20 132/85 (101) 95 97.4 09/23/24 09:05 Room Air 0.0 09/23/24 09:05 21 Physical Exam Vital Signs Date Time Temp Pulse Resp B/P (MAP) Pulse Ox O2 Delivery O2 Flow Rate FiO2 09/21/24 19:12 98.3 77 16 117/58 97 0.0 21 98.3 09/21/24 13:23 Room Air* Exam Gen: 74-year-old male in mild distress Skin: Warm, dry, normal color and texture, no rash. HEENT: Normocephalic atraumatic, mucous membranes moist and pink. Neck: Cervical and supraclavicular nodes normal without enlargement, trachea is midline, thyroid gland is normal without masses. Pulmonary: Clear to auscultation and percussion bilaterally. Cardiac: Regular rate and rhythm. No murmur Abdomen: Soft, nontender, mild distention, bowel sounds present all 4 quadrants, no guarding, no rigidity, no organomegaly. Extremities: No cyanosis, clubbing, no edema Neuro: Cranial nerves II through XII grossly intact, normal affect and speech, no focal motor deficits. Labs/Diagnostic Data Labs Test 09/23/24 05:02 09/21/24 16:07 09/21/24 15:35 09/21/24 13:15 Range/Units Sodium Level 140 136-145 mmol/L Potassium Level 4.1 3.5-5.1 mmol/L Chloride Level 101 98-107 mmol/L Carbon Dioxide Level 30 20-31 mmol/L Anion Gap 9 5-15 Blood Urea Nitrogen 19 9-23 mg/dL Creatinine 1.11 0.700-1.30 mg/dL Glomerular Filtration Rate Calc 70 >90 mL/min BUN/Creatinine Ratio 17.1 10.0-20.0 Serum Glucose 97 74-106 mg/dL Hemoglobin A1c 5.2 <5.7 % A1C Calcium Level 9.8 8.7-10.4 mg/dL Magnesium Level 2.2 1.6-2.6 mg/dL Triglycerides Level 206 H < 150 mg/dL Cholesterol Level 184 < 200 mg/dL LDL Cholesterol 128 H < 100 mg/dL HDL Cholesterol 36 L 40-59 mg/dL Thyroid Stimulating Hormone (TSH) 1.89 0.55-4.78 uIU/mL Blood Gas Specimen Type Arterial Blood Gas Sample Site Right radial Blood Gas Patient Temperature 37.0 Arterial Blood Date Drawn [id number] Arterial Blood pH 7.380 7.350-7.450 Arterial Blood Partial Pressure CO2 40.4 35.0-48.0 mmHg Arterial Blood Partial Pressure O2 69.6 L 83.0-108.0 mmHg Arterial Blood HCO3 23.4 21.0-28.0 mmol/L Arterial Blood Oxygen Saturation 93.1 L 94.0-98.0 % Arterial Blood Base Excess -1.6 -2.0-3.0 mmol/L Arterial Blood Oxyhemoglobin 91.5 L 94.0-98.0 % Arterial Blood Carboxyhemoglobin 1.4 0.5-1.5 % Arterial Blood Methemoglobin 0.3 0.0-1.5 % Juan Test Yes Blood Gas Total Hemoglobin 15.00 13.5-17.5 g/dL Blood Gas Modality Room air FiO2 % 21.0 Troponin I High Sensitivity < 3 L </=54 ng/L Urine Color Dark-yellow Yellow Urine Clarity Clear Clear Urine pH 5.5 5.0-9.0 Urine Specific [place] 1.045 H 1.001-1.035 Urine Protein Trace H Negative Urine Ketones Negative Negative Urine Blood Negative Negative /uL Urine Nitrite Negative Negative Urine Bilirubin Negative Negative Urine Urobilinogen Normal Negative mg/dL Urine Leukocyte Esterase Negative Negative /uL Urine RBC 1 0 - 3 /hpf Urine Microscopic WBC 5 H 0-3 /HPF Urine Squamous Epithelial Cells Few <5 /hpf Urine Bacteria None seen None Seen /hpf Urine Mucus Few None Seen Urine Glucose Normal Normal mg/dL Test 09/21/24 11:59 Range/Units White Blood Count 8.3 4.4-10.8 10^3/uL Red Blood Count 4.52 4.5-5.90 10^6/uL Hemoglobin 14.3 13.5-17.5 g/dL Hematocrit 41.6 41.0-53.0 % Mean Corpuscular Volume 92.2 80.0-100.0 fL Mean Corpuscular Hemoglobin 31.7 28.0-32.0 pg Mean Corpuscular Hemoglobin Concent 34.4 32.0-36.0 g/dL Red Cell Distribution Width 13.5 11.8-14.3 % Platelet Count 307 140-450 10^3/uL Mean Platelet Volume 8.4 6.9-10.8 fL Neutrophils (%) (Auto) 76.5 37.0-80.0 % Lymphocytes (%) (Auto) 16.9 10.0-50.0 % Monocytes (%) (Auto) 4.9 0.0-12.0 % Eosinophils (%) (Auto) 1.0 0.0-7.0 % Basophils (%) (Auto) 0.7 0.0-2.0 % Neutrophils # (Auto) 6.4 1.6-8.6 10 ^3/uL Lymphocytes # (Auto) 1.4 0.4-5.4 10 ^3/uL Monocytes # (Auto) 0.4 0-1.3 10 ^3/uL Eosinophils # (Auto) 0.1 0-0.8 10 ^3/uL Basophils # (Auto) 0.1 0-0.2 10 ^3/uL Nucleated Red Blood Cells 0.0 % Prothrombin Time 9.9 9.3-11.8 sec Prothrombin Time INR 0.93 0.9-1.15 Activated Partial Thromboplast Time 27.1 24.5-34.5 SEC D-Dimer, Quantitative 1.30 H 0.0-0.49 mg/L FEU Lactic Acid Level 1.3 0.4-2.0 mmol/L Total Bilirubin 0.4 0.2-1.0 mg/dL Aspartate Amino Transferase (AST) 15 13-40 U/L Alanine Aminotransferase (ALT) 28 7-40 U/L Alkaline Phosphatase 70 46-116 U/L B-Type Natriuretic Peptide 47.74 0-100 pg/mL Total Protein 7.1 5.7-8.2 g/dL Albumin 4.6 3.2-4.8 g/dL Assessment BPH Nocturia Plan/Recommendation Urolift procedure as planned Plan discussed with: Patient, Spouse, Other NAKUL ZELAYA MD Sep 23, 2024 14:53
--- NOTE | 2024-09-23 16:52 | DVHPN2 ---
Subjective Seen and examined at bedside. patient will be kept NPO for Urolift surgery tomorrow. Changes from previous H/P or p: No Changes Objective Vitals Vital Signs Date Time Temp Pulse Resp B/P (MAP) Pulse Ox O2 Delivery O2 Flow Rate FiO2 09/23/24 13:00 97.4 64 20 132/85 (101) 95 97.4 09/23/24 09:05 Room Air 0.0 09/23/24 09:05 21 Intake/Output Intake and Output 09/23/24 07:00 Intake Total 1330 ml Output Total 1150 ml Balance 180 ml Intake Oral 1330 ml Output Urine Total 1150 ml Exam Gen: in bed NAD Cvs: N S1/S2, RRR Resp: Creps Abd: Soft, NT, BS+ Banquet Bartender: AAO x 4 Medications Current Medications Medications Dose Ordered Sig/Katie Route Start Time Stop Time Status Last Admin Dose Admin Metoprolol Tartrate 25 mg BID PO 09/21/24 22:00 09/23/24 08:46 25 MG Paroxetine HCl 40 mg DAILY PO 09/22/24 10:00 09/23/24 08:46 40 MG Finasteride 5 mg DAILY PO 09/22/24 10:00 09/23/24 08:46 5 MG Ondansetron HCl 4 mg Q4HP PRN IV 09/21/24 18:45 Acetaminophen 650 mg Q6HP PRN PO 09/21/24 18:45 09/22/24 15:53 650 MG Albuterol 2.5 mg Q6HPRN PRN NEB 09/22/24 19:00 Ipratropium [place] 0.5 mg Q6HPRN PRN NEB 09/22/24 19:00 Furosemide 20 mg DAILY IV 09/23/24 10:00 09/23/24 08:47 20 MG Laboratory Results Laboratory Tests 09/21/24 11:59 09/23/24 05:02 Chemistry Test 09/23/24 05:02 Calcium Level 9.8 mg/dL (8.7-10.4) Magnesium Level 2.2 mg/dL (1.6-2.6) Lipid panel Test 09/23/24 05:02 Cholesterol Level 184 mg/dL (< 200) HDL Cholesterol 36 mg/dL (40-59) L Triglycerides Level 206 mg/dL (< 150) H HgA1c, TSH Test 09/23/24 05:02 Hemoglobin A1c 5.2 % A1C (<5.7) Thyroid Stimulating Hormone (TSH) 1.89 uIU/mL (0.55-4.78) Urinalysis Test 09/21/24 13:15 Urine Color Dark-yellow (Yellow) Urine Clarity Clear (Clear) Urine pH 5.5 (5.0-9.0) Urine Specific [place] 1.045 (1.001-1.035) Urine Protein Trace (Negative) H Urine Ketones Negative (Negative) Urine Blood Negative /uL (Negative) Urine Nitrite Negative (Negative) Urine Bilirubin Negative (Negative) Urine Urobilinogen Normal mg/dL (Negative) Urine Leukocyte Esterase Negative /uL (Negative) Urine RBC 1 /hpf (0 - 3) Urine Microscopic WBC 5 /HPF (0-3) H Urine Squamous Epithelial Cells Few /hpf (<5) Urine Bacteria None seen /hpf (None Seen) Urine Mucus Few (None Seen) Urine Glucose Normal mg/dL (Normal) Assessment/Plan Assessment/Plan # Possible Acute Diastolic CHF- Lasix, ECHO # BPH- Urolift in AM # Possible COPD Exacerbation # Goals of care discussion >17 mins FULL CODE Plan discussed with: Patient My Orders Orders - MERRY ALBRECHT MD Procedure Category Date Status Time Furosemide Injection PHA 09/23/24 In Process (Lasix Injection) 10:00 Date of Service: Sep 23, 2024 Billing Provider: MERRY ALBRECHT MD Common Visit Codes: [id number] INP/OBS CARE(HIGH) MERRY ALBRECHT MD Sep 23, 2024 16:52
[2024-09-24] VITALS (8 sets, daily range): BP systolic 123–138; BP diastolic 60–72; PULSE 58–68; RESP 18–19; TEMP 97.5–98.1; O2SAT 94–99
[2024-09-24] MEDS ORDERED: ONDANSETRON HCL 4 MG/2 ML VIAL ONE (13:16)
[2024-09-24] MEDS ORDERED: DexAMETHasone SOD PHOS 10MG/1ML VIAL INJ ONE (13:16)
[2024-09-24] MEDS ORDERED: LIDOCAINE 2% (LOCAL ANESTH.) PF 5ml SDV ONE (13:16)
[2024-09-24] MEDS ORDERED: KETOROLAC TROMETH 30 MG/ML 1ML VIAL ONE (13:16)
[2024-09-24] MEDS ORDERED: GLYCOPYRROLATE 0.2 MG/ML 1ML VIAL ONE (13:17)
[2024-09-24] MEDS ORDERED: PROPOFOL 10 MG/ML 20 ML IV ONE ×2 (13:17→14:23)
[2024-09-24] MEDS ORDERED: ePHEDrine SULFATE 50 MG/ML AMP ONE (14:22)
[2024-09-24] MEDS ORDERED: ePHEDrine SULFATE 50 MG/ML AMP IV PRN (14:45)
[2024-09-24] MEDS ORDERED: ONDANSETRON HCL 4 MG/2 ML VIAL IV ONE (14:45)
[2024-09-24] MEDS ORDERED: hydrALAZINE HCL 20 MG/ML VL IV PRN (14:45)
[2024-09-24] MEDS ORDERED: FLUMAZENIL 0.1 MG/ML INJ 10ML MDV IV PRN (14:45)
[2024-09-24] MEDS ORDERED: HYDROmorphone HCL 2 MG/ML VL/or syr IV PRN (14:45)
[2024-09-24] MEDS ORDERED: NALOXONE HCL 0.4 MG/ML VIAL IV PRN (14:45)
[2024-09-24] MEDS ORDERED: fentaNYL CITRATE 100 MCG/2 ML VL IV PRN (14:45)
--- NOTE | 2024-09-24 14:50 | DVHNC2 ---
Procedure - OPERATIVE REPORT Pre-op. Diagnosis: BPH with Obstruction Post-op. Diagnosis: Same as pre-op diagnosis Operation: Urolift - Prostate Implant Anesthesia: General Indications: Patient suffers from obstructive voiding dysfunction. Treatment options were discussed including ongoing therapy with pharmaceutical such as alpha blocking agents (Flomax/UroXatral/Rapaflow), or Prostate shrinking agents (proscar/Avodart); In-office prostate therapies (TUMT/Indigo Laser/TUNA); or Outpatient procedures such as Green light laser photovaporization/Enucleation/TURP) as well urolift. Corresponding advantages and disadvantages were also discussed. Questions were addressed.Complication include but nt limited to infection, bleeding, damage to the surrounding structures, ejaculatory dysfunction, erectile dysfunction, need for secondary p rocedures were discussed. Informed consent was obtained. Details of Procedure: Patient was brought to the operating room. After administration of anesthesia, he was placed in the lithotomy position. The area of genitalia was prepped and draped in standard surgical and sterile fashion. The 20 F access sheath was introduced into the bladder under direct vision. Bladder was emptied and the Urolift device was introduced. Five implants were permanently placed at the 10 a& 2 O'clock positions near the bladder neck and apical tissue to lift the kissing lateral lobes out of the way and to create a channel in the prostatic urethra and the urethral bladder neck opening. The implants were delivered through a needle that comes out of the Urolift delivery device and into the prostate. Patient tolerated the procedure well. He was awaken and taken to RR in stable condition. All instrument counts were correct at the end of the procedure. Specimens: None Complications: None Procedure Codes: 81537 CYSTOURETHRO W/IMPLANT. 35360 CYSTOURETHRO W/ADDL IMPLANT. Units: 4.00. NAKUL ZELAYA MD Sep 24, 2024 14:50
[2024-09-24] MEDS ORDERED: CEPH250C PO (15:43)
--- NOTE | 2024-09-24 15:48 | DVHDS2 ---
Discharge Summary Date of Admission Sep 21, 2024 at 18:32 Date of Discharge: Sep 24, 2024 Admitting Diagnosis Urolift - Prostate Implant Labs/Diagnostic Data: Laboratory Results Test 09/23/24 05:02 09/21/24 16:07 09/21/24 15:35 09/21/24 13:15 Sodium Level 140 mmol/L (136-145) Potassium Level 4.1 mmol/L (3.5-5.1) Chloride Level 101 mmol/L (98-107) Carbon Dioxide Level 30 mmol/L (20-31) Anion Gap 9 (5-15) Blood Urea Nitrogen 19 mg/dL (9-23) Creatinine 1.11 mg/dL (0.700-1.30) Glomerular Filtration Rate Calc 70 mL/min (>90) BUN/Creatinine Ratio 17.1 (10.0-20.0) Serum Glucose 97 mg/dL (74-106) Hemoglobin A1c 5.2 % A1C (<5.7) Calcium Level 9.8 mg/dL (8.7-10.4) Magnesium Level 2.2 mg/dL (1.6-2.6) Triglycerides Level 206 mg/dL (< 150) Cholesterol Level 184 mg/dL (< 200) LDL Cholesterol 128 mg/dL (< 100) HDL Cholesterol 36 mg/dL (40-59) Thyroid Stimulating Hormone (TSH) 1.89 uIU/mL (0.55-4.78) Blood Gas Specimen Type Arterial Blood Gas Sample Site Right radial Blood Gas Patient Temperature 37.0 Arterial Blood Date Drawn [id number] Arterial Blood pH 7.380 (7.350-7.450) Arterial Blood Partial Pressure CO2 40.4 mmHg (35.0-48.0) Arterial Blood Partial Pressure O2 69.6 mmHg (83.0-108.0) Arterial Blood HCO3 23.4 mmol/L (21.0-28.0) Arterial Blood Oxygen Saturation 93.1 % (94.0-98.0) Arterial Blood Base Excess -1.6 mmol/L (-2.0-3.0) Arterial Blood Oxyhemoglobin 91.5 % (94.0-98.0) Arterial Blood Carboxyhemoglobin 1.4 % (0.5-1.5) Arterial Blood Methemoglobin 0.3 % (0.0-1.5) Juan Test Yes Blood Gas Total Hemoglobin 15.00 g/dL (13.5-17.5) Blood Gas Modality Room air FiO2 % 21.0 Troponin I High Sensitivity < 3 ng/L (</=54) Urine Color Dark-yellow (Yellow) Urine Clarity Clear (Clear) Urine pH 5.5 (5.0-9.0) Urine Specific [place] 1.045 (1.001-1.035) Urine Protein Trace (Negative) Urine Ketones Negative (Negative) Urine Blood Negative /uL (Negative) Urine Nitrite Negative (Negative) Urine Bilirubin Negative (Negative) Urine Urobilinogen Normal mg/dL (Negative) Urine Leukocyte Esterase Negative /uL (Negative) Urine RBC 1 /hpf (0 - 3) Urine Microscopic WBC 5 /HPF (0-3) Urine Squamous Epithelial Cells Few /hpf (<5) Urine Bacteria None seen /hpf (None Seen) Urine Mucus Few (None Seen) Urine Glucose Normal mg/dL (Normal) Test 09/21/24 11:59 White Blood Count 8.3 10^3/uL (4.4-10.8) Red Blood Count 4.52 10^6/uL (4.5-5.90) Hemoglobin 14.3 g/dL (13.5-17.5) Hematocrit 41.6 % (41.0-53.0) Mean Corpuscular Volume 92.2 fL (80.0-100.0) Mean Corpuscular Hemoglobin 31.7 pg (28.0-32.0) Mean Corpuscular Hemoglobin Concent 34.4 g/dL (32.0-36.0) Red Cell Distribution Width 13.5 % (11.8-14.3) Platelet Count 307 10^3/uL (140-450) Mean Platelet Volume 8.4 fL (6.9-10.8) Neutrophils (%) (Auto) 76.5 % (37.0-80.0) Lymphocytes (%) (Auto) 16.9 % (10.0-50.0) Monocytes (%) (Auto) 4.9 % (0.0-12.0) Eosinophils (%) (Auto) 1.0 % (0.0-7.0) Basophils (%) (Auto) 0.7 % (0.0-2.0) Neutrophils # (Auto) 6.4 10 ^3/uL (1.6-8.6) Lymphocytes # (Auto) 1.4 10 ^3/uL (0.4-5.4) Monocytes # (Auto) 0.4 10 ^3/uL (0-1.3) Eosinophils # (Auto) 0.1 10 ^3/uL (0-0.8) Basophils # (Auto) 0.1 10 ^3/uL (0-0.2) Nucleated Red Blood Cells 0.0 % Prothrombin Time 9.9 sec (9.3-11.8) Prothrombin Time INR 0.93 (0.9-1.15) Activated Partial Thromboplast Time 27.1 SEC (24.5-34.5) D-Dimer, Quantitative 1.30 mg/L FEU (0.0-0.49) Lactic Acid Level 1.3 mmol/L (0.4-2.0) Total Bilirubin 0.4 mg/dL (0.2-1.0) Aspartate Amino Transferase (AST) 15 U/L (13-40) Alanine Aminotransferase (ALT) 28 U/L (7-40) Alkaline Phosphatase 70 U/L (46-116) B-Type Natriuretic Peptide 47.74 pg/mL (0-100) Total Protein 7.1 g/dL (5.7-8.2) Albumin 4.6 g/dL (3.2-4.8) Other Laboratory Tests 09/23/24 05:02 09/21/24 11:59 Brief Hx & Hospital Course: 74-year-old male presents for evaluation of shortness for breath. Patient reports a one month history of worsening shortness for breath. Patient reports symptoms become worse with exertion or when lying flat. She reports mild left- sided chest pressure. Denies cough or fever. No nausea or vomiting. Patient reports having an oncoming procedure by Urology on 09/24/24. Patient had mild COPD Exacerbation which resolved. Patient underwent Urolift which tolerated the procedure well. Will be discharged home on Keflex. Operations or Procedures OPERATIVE REPORT Pre-op. Diagnosis: BPH with Obstruction Post-op. Diagnosis: Same as pre-op diagnosis Operation: Urolift - Prostate Implant Anesthesia: General Indications: Patient suffers from obstructive voiding dysfunction. Treatment options were discussed including ongoing therapy with pharmaceutical such as alpha blocking agents (Flomax/UroXatral/Rapaflow), or Prostate shrinking agents (proscar/Avodart); In-office prostate therapies (TUMT/Indigo Laser/TUNA); or Outpatient procedures such as Green light laser photovaporization/Enucleation/TURP) as well urolift. Corresponding advantages and disadvantages were also discussed. Questions were addressed.Complication include but nt limited to infection, bleeding, damage to the surrounding structures, ejaculatory dysfunction, erectile dysfunction, need for secondary procedures were discussed. Informed consent was obtained. Details of Procedure: Patient was brought to the operating room. After administration of anesthesia, he was placed in the lithotomy position. The area of genitalia was prepped and draped in standard surgical and sterile fashion. The 20 F access sheath was introduced into the bladder under direct vision. Bladder was emptied and the Urolift device was introduced. Five implants were permanently placed at the 10 a& 2 O'clock positions near the bladder neck and apical tissue to lift the kissing lateral lobes out of the way and to create a channel in the prostatic urethra and the urethral bladder neck opening. The implants were delivered through a needle that comes out of the Urolift delivery device and into the prostate. Patient tolerated the procedure well. He was awaken and taken to RR in stable condition. All instrument counts were correct at the end of the procedure. APPROVED REPORT EXAM: Two-dimensional and M-mode echocardiogram with Doppler and color Doppler. Blood Pressure: 109/58 mmHg INDICATION Chest Pain EF RISK FACTORS Height: 63, Weight: 168 DIMENSIONS LVDd 4.5 (3.8-5.7cm) LA (2D) (1.9-4.0cm) Aortic Root 3.8 (2.0- 3.7cm) LVDs 3.0 (2.5-4.0cm) LA (MM) (1.9-4.0cm) Aortic Cusp Exc 1.7 (1.5- 2.0cm) EF (%) 60.0 (55-70%) Rt. Atrium (1.9-4.0cm) Asc. Aorta cm IVSd 1.0 (0.7-1.1cm) RV (D) (1.8-2.4cm) PWd 1.1 (0.7-1.1cm) Mitral Valve Mitral Mitral Stenosis E/A ratio 0.0 2D MVA cm2 DECEL Time ms PRESS 1/2 Time 119ms IVRT ms Dop MVA 1.85cm2 Aortic Valve Aortic Valve Aortic Stenosis V1 1.00m/s AO Mean GR. 3mmHg V2 1.20m/s AO Peak GR. 6mmHg LVOT Diameter 2.0 (1.8-2.4cm) Doppler HUBER 2.62cm2 Pulmonic Valve V2 0.85m/s Tricuspid Valve TR Velocity 1.97m/s RVSP 19mmHg Conclusion Sinus rhythm. Aortic root enlargement. Valves are normal. EF of 60% with normal RV function. Dopplers unremarkable. No pericardial effusion masses or vegetations discernible. Condition at Discharge: Stable Final Diagnosis/Problems List # Possible Acute Diastolic CHF- Lasix, ECHO done # BPH- s/p Urolift # Possible COPD Exacerbation # Goals of care discussion >17 mins FULL CODE Discharge Disposition: Home Discharge Instruct/Medications Diet: Cardiac 2g Na,low cholest (2 gm sodium, low cholesterol) Activity: Light activity Follow Up/Referral: Dr. Moore Medications: Keflex Discharge Statement: "Patient was advised to return to the ER or call 911 if any headaches, dizziness, shortness of breath, chest pain, abdominal pain, bleeding, fevers, or worsening of medical condition. Patient was counseled about treatment plan, medications, possible side effects, patientverbalized understanding. All questions were answered to the best of my ability. This discharge took greater then 30 minutes in planning, reviewing documentation, counseling the patient, and discussing with other team members." ASSESSMENT ASSESSMENT Assessment Date of Service: Sep 24, 2024 Billing Provider: MERRY ALBRECHT MD Common Visit Codes: 95488-YRG/OBS DISCH DAY >30min MERRY ALBRECHT MD Sep 24, 2024 15:48
== END 2024-09-24 16:50 | disposition home or self-care (01) | DRG 725 ==
LOC: ER 11:29 → OVERFLOW 18:32 → WEST WING 09-22 02:00
PROVIDERS: ADMIT Internal Medicine; ATTEND Internal Medicine
PROC: 0T7D8DZ Dilation of Urethra with Intraluminal Device, Via Natural or Artificial Opening Endoscopic (ICD-10-PCS; principal; 2024-09-24 13:57)
DX: N40.1 Benign prostatic hyperplasia with lower urinary tract symptoms (principal); I50.31 Acute diastolic (congestive) heart failure; J44.1 Chronic obstructive pulmonary disease with (acute) exacerbation; N13.8 Other obstructive and reflux uropathy; I11.0 Hypertensive heart disease with heart failure; E11.9 Type 2 diabetes mellitus without complications; E66.9 Obesity, unspecified; E78.5 Hyperlipidemia, unspecified; K21.9 Gastro-esophageal reflux disease without esophagitis; F32.A Depression, unspecified; F17.210 Nicotine dependence, cigarettes, uncomplicated; Z79.899 Other long term (current) drug therapy; Z83.3 Family history of diabetes mellitus; Z79.1 Long term (current) use of non-steroidal anti-inflammatories (NSAID); Z68.29 Body mass index [BMI] 29.0-29.9, adult
CPT/HCPCS: 36415; 36600; 71045; 71275; 80048; 80053; 80061; 81001; 82805; 83036; 83605; 83735; 83880; 84443; 84484; 85025; 85379; 85610; 85730; 86850; 86900; 86901; 93005; 93306; G0378; J1100; J1885; J2003; J2405; J2704